=== PATIENT | male | born 1985 | race Caucasian/White ===

== ENCOUNTER 2020-11-22 16:47 | Emergency (ER) | payer OTHER ==
[~2020-11-22] VITALS: Ht 190.5 cm; Wt 104.3 kg
--- NOTE | 2020-11-22 17:02 | NUR ---
ED Nurse Note: Patient walked into ED for c/o L hand 2nd digit pain onset three weeks ago, worse today. Patient denies any trauma or injury to finger. He is aaox4, breathing is normal. No open wound to finger noted.
[2020-11-22 17:03] VITALS: BP 118/52
--- NOTE | 2020-11-22 17:14 | Emergency Room Report ---
History of Present Illness General Chief Complaint: Skin Rash/Abscess Source: Patient Present Illness HPI 34-year-old male presents to the emergency department complaining of 4-10 severity right index finger discoloration and tenderness underneath the distal lateral portion of the nail. Patient reports symptoms have been progressive x3 weeks. He states he does not recall any trauma other than at one point having a cactus needle prick him in the finger. He denies soft tissue swelling, erythema, warmth or tenderness. He denies purulent discharge. He reports he is right-hand dominant. He denies bleeding or notable open wound. He denies fevers or chills. He denies paresthesias. He states he was given a dermatology referral by his primary care provider and he is currently awaiting scheduling an appointment due to limited to appointment availability. 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 Patient History Past Medical History: see triage record Past Surgical History: none Pertinent Family History: none Reviewed Nursing Documentation: PMH: Agreed; PSxH: Agreed Nursing Documentation-PMH Past Medical History: No Stated History Review of Systems All Other Systems: negative except mentioned in HPI Physical Exam Vital Signs Date Time Temp Pulse Resp B/P (MAP) Pulse Ox O2 Delivery O2 Flow Rate FiO2 11/22/20 16:51 97.9 69 19 118/52 (74) 98 Nasal Cannula Sp02 EP Interpretation: reviewed, normal General Appearance: no apparent distress, alert, GCS 15, non-toxic Head: normocephalic, atraumatic Eyes: bilateral eye normal inspection, bilateral eye PERRL ENT: hearing grossly normal, normal voice Neck: full range of motion Respiratory: lungs clear, normal breath sounds, speaking full sentences Cardiovascular #1: regular rate, rhythm, normal capillary refill Musculoskeletal: normal range of motion, gait/station normal, non-tender Neurologic: alert, motor strength/tone normal, oriented x3, sensory intact, responsive, speech normal Psychiatric: judgement/insight normal Skin: other - Whitish discoloration underneath the lateral aspect of the right index finger. Progression appears to be moving proximally from the distal tip of the fingernail in a linear fashion. No soft tissue erythema, warmth, tenderness, no notable discharge. Lymphatic: no adenopathy Medical Decision Making PA Attestation Dr. Rollins Is my supervising Physician whom patient management has been discussed with. Diagnostic Impression: Primary Impression: Traumatic onychia ER Course 34-year-old male presents to the emergency department complaining of 4-10 severity right index finger discoloration and tenderness underneath the distal lateral portion of the nail. Patient reports symptoms have been progressive x3 weeks. He states he does not recall any trauma other than at one point having a cactus needle prick him in the finger. He denies soft tissue swelling, erythema, warmth or tenderness. He denies purulent discharge. He reports he is right-hand dominant. He denies bleeding or notable open wound. He denies fevers or chills. He denies paresthesias. He states he was given a dermatology referral by his primary care provider and he is currently awaiting scheduling an appointment due to limited to appointment availability. Ddx considered but are not limited to cellulitis, paronychia, eponychia, ingrown toe nail, fracture, d/L, gout Vital signs: are WNL, pt. is afebrile H&PE are most consistent with traumatic onychia versus fungal onychia infection. No evidence of paronychia/eponychia or felon. No evidence of abscess or ingrown nail. ORDERS: none required at this time, the diagnosis is clinical ED INTERVENTIONS: None required at this time -I do not identify an emergent condition at this time. With current presentation, pt. is stable for close outpatient follow up and conservative treatment. D/w pt. to return promptly to ED with worsening or new symptoms.- Pt. verbalizes' understanding and agreement with proposed treatment plan. DISCHARGE: At this time pt. is stable for d/c to home. Will provide printed patient care instructions, and any necessary prescriptions. Care plan and follow up instructions have been discussed with the patient prior to discharge. Last Vital Signs Date Time Temp Pulse Resp B/P (MAP) Pulse Ox O2 Delivery O2 Flow Rate FiO2 11/22/20 17:03 97.9 69 19 118/52 98 Nasal Cannula Disposition: HOME, SELF-CARE Condition: Stable Scripts Mupirocin* (MUPIROCIN*) 22 Gm Oint...g. 1 APPLIC TOPIC THREE TIMES A DAY, #22 GM Prov: Batool Myrick 11/22/20 Ciclopirox (CICLOPIROX) 6.6 Ml Solution 1 APPLIC TP DAILY, #6.6 ML Prov: Batool Myrick 11/22/20 Amoxicillin/Potassium Clav 875-125* (AUGMENTIN 875-125 TABLET*) 1 Each Tablet 1 TAB ORAL TWICE A DAY for 7 Days, #14 TAB Prov: Batool Myrick 11/22/20 Patient Instructions: Paronychia, [id number] Additional Instructions: Take medications as directed. Follow up with a Primary Care Provider in 3-5 days for DERMATOLOGY REFERRAL, even if your symptoms have resolved. Return sooner to ED if new symptoms occur, or current symptoms become worse. - Please note that this Emergency Department Report was dictated using [employer] conductor technology software, occasionally this can lead to erroneous entry secondary to interpretation by the dictation equipment. Batool Myrick Nov 22, 2020 17:14
[2020-11-22] MEDS ORDERED: MUPIROCIN22 GM TOPIC (17:18)
[2020-11-22] MEDS ORDERED: AUGMENTIN 875-1 EAC1 ORAL (17:18)
[2020-11-22] MEDS ORDERED: CICLOPIROX6.6 ML TP (17:18)
[2020-11-22 17:25] VITALS: BP 120/66
--- NOTE | 2020-11-22 17:25 | NUR ---
ER DISCHARGE NOTE: Patient is cleared to be discharged per ERMD, pt is aox4, on room air, with stable vital signs. pt was given dc and prescription instructions, pt was able to verbalize understanding, pt id band removed. pt is able to ambulate with steady gait. pt took all belongings.
== END 2020-11-22 17:25 | disposition home or self-care (01) ==
LOC: EMR 17:05
DX: L03.011 Cellulitis of right finger (principal); W60.XXXA Contact with nonvenomous plant thorns and spines and sharp leaves, initial encounter; Y93.9 Activity, unspecified; Y92.9 Unspecified place or not applicable
CPT/HCPCS: 99282

== ENCOUNTER 2021-01-05 22:05 | Emergency (ER) | payer OTHER ==
[~2021-01-05] VITALS: Ht 190.5 cm; Wt 99.8 kg
[~2021-01-05 22:05] MED LIST: AUGMENTIN 875-1 EAC1 ORAL; CICLOPIROX6.6 ML TP; MUPIROCIN22 GM TOPIC
--- NOTE | 2021-01-05 23:09 | NUR ---
ED Nurse Note: Pt ambulated into ED, AAO x4. Reports he had first moderna vaccine yesterday and began having fever, body aches, and nausea a couple of hours ago. Pt reports he took 500mg of tylenol at 1600 and another 500mg at 1700.
--- NOTE | 2021-01-05 23:14 | Emergency Room Report ---
History of Present Illness General Chief Complaint: General Complaint Source: Patient Present Illness HPI Disclaimer: Please note that this report is being documented using [employer] technology. This can lead to erroneous entry secondary to incorrect interpretation by the dictating instrument. HPI: 35-year-old male presents for evaluation of fever and body aches. Symptoms began earlier today. 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 He reported feeling well yesterday though somewhat fatigued. This morning he awoke with diffuse myalgias and arthralgias. Nausea, generalized headache. Denies vomiting or diarrhea. Denies chest pain or palpitations cough or shortness of breath. He reports fevers at home as high as 102. He took Tylenol prior to arrival. Recently tested negative for COVID-19. Denies recent known exposures. 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 EOMI. Cardiovascular: Tachycardic Resp: Normal work of breathing. No cough, wheezing or crackles appreciated Abdomen: Abdomen is soft, nondistended. Nontender Skin: Intact. No abrasions, laceration or rash over the exposed skin MSK: Normal tone and bulk. Moving all extremities. No obvious deformity. Neuro: Awake and alert. Mentating appropriately. 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 Likely a postvaccination syndrome from receiving the first dose of the [place] to vaccine yesterday. Patient denies respiratory symptoms though infection with COVID-19 still possible. Recommended testing for COVID-19 prior to him returning to work. Unfortunately rapid testing not available at our facility at this time and send out testing only available for inpatients. Patient given IV fluids, NSAIDs, Zofran. Myalgias improved. Heart rate normalized. Fever improved. Stable for outpatient follow-up. Instructed the patient to discuss his reaction with his PMD prior to his next dose. Instructed to return with new or worsening symptoms. He understands and agrees with this treatment plan. We will continue Tylenol at home. Last Vital Signs Date Time Temp Pulse Resp B/P (MAP) Pulse Ox O2 Delivery O2 Flow Rate FiO2 01/05/21 22:49 100.2 118 26 101/65 (77) 94 Room Air Disposition: HOME, SELF-CARE Condition: Stable Referrals: [facility] Additional Instructions: Call your primary physician as soon as possible to discuss emergency department visit. Suspect this is a reaction to the Materna vaccine you received yesterday. Informed the vaccination center prior to your next vaccine that you had the symptoms. You may require reevaluation or further testing per your doctor's recommendations. Limit your contact with others as much as possible over the next 14 days. Stay minimum of 6 feet away from others, do not attend large gatherings and clean and disinfect all heavily used surfaces. Recommend you obtain COVID-19 testing prior to returning to work. Follow CDC guidelines for isolation and infection prevention. If you experience any new or worsening symptoms discussed with your doctor or return to the emergency department for reevaluation. Marc Centeno MD Jan 05, 2021 23:14
[2021-01-05 23:41] VITALS: BP 101/65
[2021-01-06] MEDS ORDERED: Acetaminophen 500mg (ES) tab ORAL ONE (00:45)
--- NOTE | 2021-01-06 01:56 | NUR ---
ER DISCHARGE NOTE: Patient is cleared to be discharged per ERMD, pt is aox4, on room air, with stable vital signs. pt was given dcinstructions, pt was able to verbalize understanding, pt id band and iv site removed without complications. pt is able to ambulate with steady gait. pt took all belongings.
== END 2021-01-06 01:52 | disposition home or self-care (01) ==
LOC: EMR 23:06
DX: R50.83 Postvaccination fever (principal); M79.10 Myalgia, unspecified site; M25.50 Pain in unspecified joint; T50.Z95A Adverse effect of other vaccines and biological substances, initial encounter; J45.909 Unspecified asthma, uncomplicated; Y92.9 Unspecified place or not applicable
CPT/HCPCS: 96360; J7030; Z7502; 99284